=== PATIENT | female | born 1940 | race Caucasian/White ===

== ENCOUNTER 2017-04-04 06:57 | Day surgery (SDC) | payer OTHER ==
[~2017-04-04] VITALS: Ht 167.6 cm; Wt 59.9 kg
[~2017-04-04 06:57] MED LIST: ADULT LOW DOSE81 M1 PO; ALPRAZOLAM0.25 M2 PO; ANTIVERT25 MG PO; ASPIR-LOW81 M1; CYANOCOBAL1000 MCG/2 IM; FEMARA2.5 MG PO; ISOSORBIDE MONO30 MG PO; LEVOTHYROXINE25 MCG; LIPITOR80 MG PO; METOPROLOL SUCC50 MG PO; NEXIUM20 MG PO; NEXIUM40 MG; NEXIUM40 MG PO; NITROGLYCERIN0.4 MG; NITROSTAT0.4 MG SL; NORCO 5/3251 TABLET PO; SYNTHROID25 MCG PO; SYNTHROID50 MCG PO; TOPROL XL50 MG PO; ULTRAM50 MG PO; VIT D; VITAMIN C1000 MG PO; VITAMIN D1000 INTUN PO; VITAMIN D31000 UNI2 PO; VYTORIN 10/81 TABLET; XANAX0.25 MG; XANAX0.25 MG PO
[2017-04-04 07:39] VITALS: BP 170/70
[2017-04-04 09:46] LABS: POINT-OF-CARE METER ID UU13113675
[2017-04-04 09:55] VITALS: BP 175/65
[2017-04-04 10:21] VITALS: BP 173/60
== END 2017-04-04 10:32 | disposition home or self-care (01) ==
LOC: SDC 06:57
PROVIDERS: Internal Medicine
DX: H35.371 Puckering of macula, right eye (principal); I25.10 Atherosclerotic heart disease of native coronary artery without angina pectoris; K21.9 Gastro-esophageal reflux disease without esophagitis; Z95.1 Presence of aortocoronary bypass graft; E03.9 Hypothyroidism, unspecified; D64.9 Anemia, unspecified; E53.8 Deficiency of other specified B group vitamins; F41.9 Anxiety disorder, unspecified; Z85.3 Personal history of malignant neoplasm of breast; Z83.3 Family history of diabetes mellitus; Z82.49 Family history of ischemic heart disease and other diseases of the circulatory system; Z84.1 Family history of disorders of kidney and ureter; Z79.82 Long term (current) use of aspirin
CPT/HCPCS: 82948; J0690; J3300

== ENCOUNTER 2018-01-02 14:38 | Observation (INO) | payer OTHER ==
[~2018-01-02] VITALS: Ht 167.6 cm; Wt 78.0 kg
[2018-01-02 15:13] LABS: HEMATOCRIT 33.8 % (36.0-46.0); HEMOGLOBIN 10.7 G/DL (11.9-15.5); MCH 27.1 PG (29.0-34.0); MCHC 31.7 G/DL (30.0-36.0); MCV 85.6 FL (83-99); PLATELET COUNT 188 K/uL (156-360); RBC DIS.WIDTH-CV 14.6 % (11.8-14.6); RBC DIS.WIDTH-SD 45.7 % (39-53); RED BLOOD COUNT 3.95 M/uL (3.80-5.20); WHITE BLOOD COUNT 6.2 K/uL (4.1-10.2)
[2018-01-02 15:24] LABS: CHLORIDE 108 mEq/L (99-109); SODIUM 140 mEq/L (136-147)
[2018-01-02 15:26] LABS: GLUCOSE 93 mg/dL (70-99)
[2018-01-02 15:29] LABS: CREATININE 1.4 mg/dL (0.6-1.3); GFR ESTIMATE (CALCULATED) 39 mL/min/
[2018-01-02 15:30] LABS: UREA NITROGEN (BUN) 33 mg/dL (9-23)
[2018-01-02 15:34] LABS: TROP-I INTERPRETATION NEGATIVE; TROPONIN-I < 0.01 ng/mL (0.0-0.30)
[2018-01-02] MEDS ORDERED: VITAMIN D-32000 UNI2 PO (16:40)
[2018-01-02 19:42] VITALS: BP 180/77
[2018-01-02 21:02] LABS: TROP-I INTERPRETATION NEGATIVE; TROPONIN-I < 0.01 ng/mL (0.0-0.30)
[2018-01-03 00:03] VITALS: BP 134/61
[2018-01-03 04:04] VITALS: BP 154/68
[2018-01-03 06:24] LABS: TROP-I INTERPRETATION NEGATIVE; TROPONIN-I < 0.01 ng/mL (0.0-0.30)
[2018-01-03 08:30] VITALS: BP 177/79
[2018-01-03 12:33] VITALS: BP 196/78
[2018-01-03] MEDS ORDERED: NIFEDIPINE ER90 MG PO (12:43)
[2018-01-03 15:52] VITALS: BP 154/73
== END 2018-01-03 17:55 | disposition home or self-care (01) ==
LOC: EME 14:38 → 5WEST 16:27 → EDOF 16:27 → ENRESERV 17:41 → 5WEST 19:40 → ENPENDDIS 01-03 → 5WEST 01-03 17:55
PROVIDERS: Family Medicine
DX: R07.9 Chest pain, unspecified (principal); K21.9 Gastro-esophageal reflux disease without esophagitis; I25.10 Atherosclerotic heart disease of native coronary artery without angina pectoris; I12.9 Hypertensive chronic kidney disease with stage 1 through stage 4 chronic kidney disease, or unspecified chronic kidney disease; N18.9 Chronic kidney disease, unspecified; Z95.1 Presence of aortocoronary bypass graft; E03.9 Hypothyroidism, unspecified; Z85.3 Personal history of malignant neoplasm of breast; K22.4 Dyskinesia of esophagus; R42 Dizziness and giddiness; R06.02 Shortness of breath; F41.9 Anxiety disorder, unspecified; F32.9 Major depressive disorder, single episode, unspecified; Z82.49 Family history of ischemic heart disease and other diseases of the circulatory system; Z83.3 Family history of diabetes mellitus; Z88.1 Allergy status to other antibiotic agents; Z88.2 Allergy status to sulfonamides; Z88.5 Allergy status to narcotic agent; Z88.8 Allergy status to other drugs, medicaments and biological substances; Z91.041 Radiographic dye allergy status
CPT/HCPCS: 71046; 80048; 84484; 85027; 93005; 99281; 99285; G0378; J7030